=== PATIENT | female | born 1960 | race Caucasian/White ===

== ENCOUNTER 2016-03-31 15:13 | Emergency (ER) | payer MEDICAID ==
[2016-03-31] MEDS ORDERED: KETOROLAC 30 MG/ML VIAL ONE (17:02)
== END 2016-03-31 18:30 | disposition home or self-care (01) ==
LOC: FASTR 15:13
DX: S62.317A Displaced fracture of base of fifth metacarpal bone, left hand, initial encounter for closed fracture (principal); S52.91XA Unspecified fracture of right forearm, initial encounter for closed fracture; G89.11 Acute pain due to trauma; E11.9 Type 2 diabetes mellitus without complications; I10 Essential (primary) hypertension; Q61.3 Polycystic kidney, unspecified; Z79.82 Long term (current) use of aspirin; F17.210 Nicotine dependence, cigarettes, uncomplicated
CPT/HCPCS: 96372